=== PATIENT | male | born 1990 | race Caucasian/White ===

== ENCOUNTER → 2020-01-06 | Outpatient (CLI) | payer OTHER | END | disposition home or self-care (01) | LOC: US 10:00 | PROVIDERS: ATTEND Student in an Organized Health Care Education/Training Program | DX: Q61.3 Polycystic kidney, unspecified (principal) ==

== ENCOUNTER 2022-05-17 11:29 | Emergency (ER) | payer MEDICAID ==
[~2022-05-17] VITALS: Ht 200.6 cm; Wt 113.4 kg
[2022-05-17 12:22] LABS: BILIRUBIN 1+ (Negative); BLOOD 3+ (Negative); CLARITY Turbid (Clear); GLUCOSE Negative (Negative); KETONE Negative (Negative); LEUKO ESTERASE 2+ (Negative); NITRITE Positive (Negative); UROBILINOGEN 0.2 E.U./dl (0.0-1.0)
[2022-05-17 12:34] LABS: COLOR Red (Yellow); RBC TNTC rbc/hpf (0-2)
[2022-05-17] MEDS ORDERED: VIBRAMYCIN100 MG PO (14:45)
== END 2022-05-17 15:29 | disposition home or self-care (01) ==
LOC: ED 11:29
PROVIDERS: Physician Assistant
DX: N39.0 Urinary tract infection, site not specified (principal); Z88.6 Allergy status to analgesic agent